=== PATIENT | male | born 1950 | race Caucasian/White ===

== ENCOUNTER 2025-09-25 13:40 | Day surgery (SDC) | payer MEDICARE ==
[~2025-09-25] VITALS: Ht 182.9 cm; Wt 65.9 kg
[~2025-09-25 13:40] MED LIST: Balanced Salt Epinephrine Irrigation Solution 500 mL IR SCH; Moxifloxacin HCL 0.5 MG/0.1 ML 0.4MLSYR LEFTEYE SCH; PHENYLEPHRINE\\TROPICAMIDE\\TETRACAINE OPHTHALMIC DILATING SOLN LEFTEYE PRN; Povidone-Iodine 450 DROP/30 ML Solution LEFTEYE SCH; Povidone-Iodine 450 DROP/30 ML Solution ONE; Tetracaine HCl/Pf 0.5% Opth Soln 4 ml ONE; Triamcinolone Inj Susp 40 MG / ML 1ML Vial INJ SCH; Triamcinolone Inj Susp 40 MG / ML 1ML Vial ONE
[2025-09-25] MEDS ORDERED: NS 1,000 ML IV ONE (14:25)
--- NOTE | 2025-09-25 14:29 | NUR ---
09/25/25 1429 AIMEE HERNANDEZ REPORT TO [facility]
[2025-09-25] MEDS ORDERED: Midazolam HCl 1MG / ML 2ML Vial ONE ×2 (14:42→14:50)
[2025-09-25] MEDS ORDERED: Tetracaine HCl 0.5% Opth Soln 15 ml LEFTEYE ONE (14:46)
[2025-09-25 15:06] VITALS: BP 138/68
== END 2025-09-25 15:17 | disposition home or self-care (01) ==
LOC: ORSCSDS 13:40
PROVIDERS: Ophthalmology
PROC: 08RK3JZ Replacement of Left Lens with Synthetic Substitute, Percutaneous Approach (ICD-10-PCS; principal; 2025-09-25 15:00)
DX: H25.813 Combined forms of age-related cataract, bilateral (principal); Z87.891 Personal history of nicotine dependence
CPT/HCPCS: J2250; J3301; V2632

== ENCOUNTER 2025-10-02 13:23 | Day surgery (SDC) | payer MEDICARE ==
[~2025-10-02] VITALS: Ht 182.9 cm; Wt 65.1 kg
[~2025-10-02 13:23] MED LIST changes: -Moxifloxacin HCL 0.5 MG/0.1 ML 0.4MLSYR LEFTEYE SCH; +Moxifloxacin HCL 0.5 MG/0.1 ML 0.4MLSYR RIGHTEYE SCH; +NS 500 ML IV ONE; -PHENYLEPHRINE\\TROPICAMIDE\\TETRACAINE OPHTHALMIC DILATING SOLN LEFTEYE PRN; +PHENYLEPHRINE\\TROPICAMIDE\\TETRACAINE OPHTHALMIC DILATING SOLN RIGHTEYE PRN; -Povidone-Iodine 450 DROP/30 ML Solution LEFTEYE SCH; +Povidone-Iodine 450 DROP/30 ML Solution RIGHTEYE SCH
--- NOTE | 2025-10-02 13:43 | NUR ---
10/02/25 1343 AIMEE HERNANDEZ RESTING ON GURNEY, RAILS UP, BRAKES ON, CALL LIGHT IN REACH
[2025-10-02] MEDS ORDERED: NS 1,000 ML IV ONE (13:50)
[2025-10-02] MEDS ORDERED: Midazolam HCl 1MG / ML 2ML Vial ONE (14:11)
[2025-10-02] MEDS ORDERED: Tetracaine HCl 0.5% Opth Soln 15 ml RIGHTEYE ONE (14:12)
[2025-10-02 14:31] VITALS: BP 126/66
== END 2025-10-02 14:58 | disposition home or self-care (01) ==
LOC: ORSCSDS 13:23
PROVIDERS: Ophthalmology
PROC: 08RJ3JZ Replacement of Right Lens with Synthetic Substitute, Percutaneous Approach (ICD-10-PCS; principal; 2025-10-02 15:00)
DX: H25.811 Combined forms of age-related cataract, right eye (principal); Z96.1 Presence of intraocular lens
CPT/HCPCS: J2250; J3301; J7040; V2632